=== PATIENT | female | born 1970 | race Caucasian/White ===

== ENCOUNTER 2018-02-28 08:47 | Emergency (ER) | payer OTHER ==
[2018-02-28 09:17] LABS: URINE PH (Dip) POC 5.5 (5.0-8.5)
[2018-02-28 09:17] LABS: URINE BLOOD (Dip) POC 3+ (NEGATIVE); URINE GLUCOSE (Dip) POC Negative (NEGATIVE); URINE KETONES (Dip) POC Negative (NEGATIVE); URINE LEUKOCYTE EST (Dip) POC Negative (NEGATIVE); URINE NITRITE (Dip) POC Negative (NEGATIVE); URINE TOTAL PROTEIN POC 1+ (NEGATIVE)
[2018-02-28] MEDS: KETOROLAC 60 MG INJ IM (09:26)
== END 2018-02-28 10:11 | disposition home or self-care (01) ==
LOC: FTE 08:47
DX: M54.5 Low back pain (principal)
CPT/HCPCS: 81003; 81025; 96372; 99284-25

== ENCOUNTER 2018-08-20 09:23 | Emergency (ER) | payer OTHER ==
[2018-08-20] MEDS: KETOROLAC 30 MG INJ IM (10:11)
== END 2018-08-20 10:44 | disposition home or self-care (01) ==
LOC: FTE 09:23
DX: S42.321A Displaced transverse fracture of shaft of humerus, right arm, initial encounter for closed fracture (principal); J45.909 Unspecified asthma, uncomplicated; V89.2XXA Person injured in unspecified motor-vehicle accident, traffic, initial encounter
CPT/HCPCS: 81025; 96372; 99284-25

== ENCOUNTER 2019-01-11 13:35 | Emergency (ER) | payer OTHER ==
[2019-01-11] MEDS: SOD CHLORIDE 0.9% 1,000 ML IV (15:13)
[2019-01-11] MEDS: DIPHENHYDRAMINE 50 MG INJ IV (15:13)
[2019-01-11] MEDS: METOCLOPRAMIDE 10 MG INJ IV (15:13)
[2019-01-11 16:06] LABS: ADD UMIC YES; UR ASCORBIC ACID NEGATIVE (NEGATIVE); UR BACTERIA FEW /HPF (NONE SEEN); UR BILIRUBIN (Dip) NEGATIVE (NEGATIVE); UR BLOOD (Dip) 3+ mg/dL (NEGATIVE); UR CLARITY SLIGHTLY CLOUDY (CLEAR); UR COLOR STRAW (YELLOW); UR GLUCOSE (Dip) NEGATIVE (NEGATIVE); UR KETONES (Dip) NEGATIVE (NEGATIVE); UR LEUKOCYTE ESTERASE (Dip) NEGATIVE Leu/ul (NEGATIVE); UR NITRITE (Dip) NEGATIVE (NEGATIVE); UR RBC 1 /HPF (0-5); UR SPECIFIC GRAVITY (Dip) 1.003 (1.003-1.030); UR SQUAMOUS EPITHELIAL CELL FEW /HPF (FEW); UR TOTAL PROTEIN (Dip) NEGATIVE (NEGATIVE); UR UROBILINOGEN (Dip) NEGATIVE (NEGATIVE); UR WBC 1 /HPF (0-5)
== END 2019-01-11 16:39 | disposition home or self-care (01) ==
LOC: FTE 13:35
DX: R51 Headache (principal); J45.909 Unspecified asthma, uncomplicated
CPT/HCPCS: 70450; 81001; 81025; 96374; 96375; 99285-25